=== PATIENT | female | born 1990 | race Two or more races ===

== ENCOUNTER 2019-01-01 19:26 | Emergency (ER) | payer SELFPAY ==
[~2019-01-01] VITALS: Ht 152.4 cm; Wt 68.0 kg
[2019-01-01 19:32] VITALS: BP 119/81
[2019-01-01] MEDS ORDERED: KETOROLAC 30 MG/1 ML ONE (20:24)
--- NOTE | 2019-01-01 20:25 | NUR ---
MEDICATED PER EMAR FOR PAIN RATED AT 8/10 2 ICE PACK ALSO APPLIED
[2019-01-01] MEDS ORDERED: KETOROLAC 30 MG/1 ML IM ONE (20:30)
== END 2019-01-01 21:28 | disposition home or self-care (01) ==
LOC: ED 21:05
DX: S83.91XA Sprain of unspecified site of right knee, initial encounter (principal); W19.XXXA Unspecified fall, initial encounter; Y93.66 Activity, soccer; Y92.89 Other specified places as the place of occurrence of the external cause; Y99.8 Other external cause status; S73.101A Unspecified sprain of right hip, initial encounter
CPT/HCPCS: 73502; 73564; 73590; 96372; 99283; J1885